=== PATIENT | male | born 1990 | race Caucasian/White ===

== ENCOUNTER 2019-12-01 18:41 | Emergency (ER) | payer SELFPAY ==
[~2019-12-01] VITALS: Ht 167.6 cm; Wt 59.9 kg
--- NOTE | 2019-12-01 18:41 | NUR ---
Patient BIB [facility] for pre-booking medical screening exam, transferred to chair Bailey. RN evaluating patient at bedside.
--- NOTE | 2019-12-01 18:43 | NUR ---
Dr. Greene is evaluating the patient.
--- NOTE | 2019-12-01 18:50 | NUR ---
PT BIB [facility] FOR PRE-BOOK, ACTING INAPPROPRIATELY AND UNCOOPERATIVE. CANNOT GET A FULL SET OF VITALS PT NOT WILLING TO PROVIDE MEDICAL HX. RESP EVEN AND UNLABORED. NO APPARENT DISTRESS NOTED. PT IS AGITATED.
--- NOTE | 2019-12-01 18:59 | NUR ---
PATIENT [facility] POLICE DEPT. PATIENT EXAMINED BY DR. MENEZES. PATIENT MEDICALLY CLEARED AND RELEASED IN CUSTODY IN STABLE CONDITION. ORIGINAL PRE-BOOK FORM GIVEN TO OFFICER HARI.
== END 2019-12-01 18:59 ==
LOC: MED 18:41
DX: F19.10 Other psychoactive substance abuse, uncomplicated (principal); Z02.89 Encounter for other administrative examinations
CPT/HCPCS: 99283